=== PATIENT | female | born 1990 | race African-American/Black ===

== ENCOUNTER 2016-11-24 03:47 | Emergency (ER) | payer OTHER ==
[~2016-11-24] VITALS: Ht 167.6 cm; Wt 68.0 kg
[2016-11-24 04:13] VITALS: BP 114/73
[2016-11-24 04:39] LABS: URINE BILIRUBIN NEGATIVE (Negative); URINE BLOOD TRACE (Negative); URINE COLOR YELLOW; URINE GLUCOSE-RANDOM* NEGATIVE (Negative); URINE KETONES NEGATIVE (Negative); URINE NITRITE NEGATIVE (Negative); URINE PROTEIN (DIPSTICK) NEGATIVE (Negative); URINE SPECIFIC GRAVITY 1.025 (1.003-1.035); URINE UROBILINOGEN 0.2 E.U./dl (0.2-1.0)
[2016-11-24] MEDS ORDERED: FLAGYL500 MG PO (04:39)
[2016-11-24 04:46] LABS: CASTS None Seen /LPF (None Seen); SQUAMOUS 4-10 Moderate /LPF (0-3)
[2016-11-24 04:47] LABS: URINE WBC 0-5 Rare /HPF (0-5)
[2016-11-24 04:48] LABS: CRYSTALS None Seen /LPF (None Seen); URINE RBC 3-10 Few /HPF (0-2)
[2016-11-25 15:10] LABS: CHLAMYDIA TRACHOMATIS-PCR Negative (Negative); NEISSERIA GONORRHEA-PCR Negative (Negative)
== END 2016-11-24 04:52 | disposition home or self-care (01) ==
LOC: ER 03:47
PROVIDERS: Emergency Medicine
DX: N76.0 Acute vaginitis (principal)

== ENCOUNTER 2017-06-20 16:33 | Emergency (ER) | payer OTHER ==
[~2017-06-20] VITALS: Ht 167.6 cm; Wt 77.1 kg
[~2017-06-20 16:33] MED LIST: FLAGYL500 MG PO
[2017-06-20] MEDS ORDERED: PNV PRENATAL P1 EACH PO (16:58)
[2017-06-20] MEDS ORDERED: PRENATAL PO (16:58)
[2017-06-20 17:18] LABS: URINE BILIRUBIN NEGATIVE (Negative); URINE BLOOD NEGATIVE (Negative); URINE CLARITY CLEAR; URINE COLOR YELLOW; URINE GLUCOSE-RANDOM* NEGATIVE (Negative); URINE KETONES NEGATIVE (Negative); URINE NITRITE-REFLEX NEGATIVE (Negative); URINE PROTEIN (DIPSTICK) NEGATIVE (Negative); URINE SPECIFIC GRAVITY 1.025 (1.005-1.035); URINE UROBILINOGEN 0.2 E.U./dl (0.2-1.0)
[2017-06-20 17:20] LABS: URINE LEUKOCYTES-REFLEX 2+ (Negative)
[2017-06-20 17:24] LABS: SQUAMOUS 0-3 Few /LPF (0-3); URINE RBC None Seen /HPF (0-2); URINE WBC-REFLEX 6-15 Few /HPF (0-5)
[2017-06-20 17:25] LABS: BACTERIA-REFLEX 1-9 Few /HPF (None Seen); CASTS None Seen /LPF (None Seen); CRYSTALS None Seen /LPF (None Seen)
[2017-06-20] MEDS ORDERED: KEFLEX500 M1 PO (17:27)
== END 2017-06-20 17:36 | disposition home or self-care (01) ==
LOC: ER 16:33
PROVIDERS: Physician Assistant
DX: O23.42 Unspecified infection of urinary tract in pregnancy, second trimester (principal); Z3A.21 21 weeks gestation of pregnancy

== ENCOUNTER 2019-06-16 00:14 | Emergency (ER) | payer OTHER ==
[~2019-06-16] VITALS: Ht 167.6 cm; Wt 77.1 kg
[~2019-06-16 00:14] MED LIST changes: +KEFLEX500 M1 PO; +PNV PRENATAL P1 EACH PO; +PRENATAL PO
[2019-06-16] MEDS ORDERED: NOHOMEMEDICATIONS (00:27)
[2019-06-16] MEDS ORDERED: KEFLEX500 M1 PO (02:14)
[2019-06-16 02:21] VITALS: BP 112/70
== END 2019-06-16 02:22 | disposition home or self-care (01) ==
LOC: ER 00:14
DX: N76.0 Acute vaginitis (principal)

== ENCOUNTER 2019-08-17 14:59 | Emergency (ER) | payer OTHER ==
[~2019-08-17] VITALS: Ht 167.6 cm; Wt 77.1 kg
[~2019-08-17 14:59] MED LIST changes: +NOHOMEMEDICATIONS
[2019-08-17 15:12] LABS: URINE BILIRUBIN NEGATIVE (Negative); URINE BLOOD TRACE (Negative); URINE CLARITY CLEAR; URINE COLOR YELLOW; URINE GLUCOSE-RANDOM* NEGATIVE (Negative); URINE KETONES NEGATIVE (Negative); URINE LEUKOCYTES-REFLEX NEGATIVE (Negative); URINE NITRITE-REFLEX NEGATIVE (Negative); URINE PROTEIN (DIPSTICK) NEGATIVE (Negative); URINE SPECIFIC GRAVITY >= 1.030 (1.005-1.035)
[2019-08-17] MEDS ORDERED: REQUIP 0.25 M0.25 MG (15:23)
[2019-08-17] MEDS ORDERED: DIFLUCAN200 MG PO (16:50)
[2019-08-17 16:59] VITALS: BP 125/76
== END 2019-08-17 17:02 | disposition home or self-care (01) ==
LOC: ER 14:59
PROVIDERS: Physician Assistant
DX: B37.3 Candidiasis of vulva and vagina (principal)

== ENCOUNTER 2019-12-04 09:56 | Emergency (ER) | payer OTHER ==
[~2019-12-04] VITALS: Ht 167.6 cm; Wt 79.4 kg
[~2019-12-04 09:56] MED LIST changes: +DIFLUCAN200 MG PO; +REQUIP 0.25 M0.25 MG
[2019-12-04] MEDS ORDERED: REQUIP XL2 MG PO (10:21)
[2019-12-04 10:39] LABS: URINE BILIRUBIN NEGATIVE (Negative); URINE BLOOD 2+ (Negative); URINE CLARITY SL CLOUDY; URINE COLOR YELLOW; URINE GLUCOSE-RANDOM* NEGATIVE (Negative); URINE KETONES NEGATIVE (Negative); URINE PROTEIN (DIPSTICK) 2+ (Negative); URINE SPECIFIC GRAVITY 1.015 (1.005-1.035); URINE UROBILINOGEN 0.2 E.U./dl (0.2-1.0)
[2019-12-04 10:42] LABS: URINE LEUKOCYTES-REFLEX 2+ (Negative); URINE NITRITE-REFLEX POSITIVE (Negative)
[2019-12-04 10:48] LABS: CASTS None Seen /LPF (None Seen); SQUAMOUS 0-3 Few /LPF (0-3); URINE WBC-REFLEX >25 Many /HPF (0-5)
[2019-12-04 10:49] LABS: BACTERIA-REFLEX >30 Many /HPF (None Seen); CRYSTALS None Seen /LPF (None Seen)
[2019-12-04] MEDS ORDERED: ZOFRAN ODT4 MG PO (11:20)
[2019-12-04] MEDS ORDERED: MACROBID 100 M100 M1 PO (11:20)
[2019-12-04 12:18] VITALS: BP 97/46
== END 2019-12-04 12:19 | disposition home or self-care (01) ==
LOC: ER 09:56
PROVIDERS: Emergency Medicine
DX: N30.00 Acute cystitis without hematuria (principal); R11.2 Nausea with vomiting, unspecified; Z79.899 Other long term (current) drug therapy

== ENCOUNTER 2021-02-14 21:21 | Emergency (ER) | payer OTHER ==
[~2021-02-14] VITALS: Ht 167.6 cm; Wt 78.9 kg
[~2021-02-14 21:21] MED LIST changes: +MACROBID 100 M100 M1 PO; +REQUIP XL2 MG PO; +ZOFRAN ODT4 MG PO
[2021-02-14] MEDS ORDERED: NOHOMEMEDICATIONS (21:43)
[2021-02-14 21:48] LABS: URINE BILIRUBIN NEGATIVE (Negative); URINE BLOOD 2+ (Negative); URINE CLARITY CLOUDY; URINE COLOR YELLOW; URINE GLUCOSE-RANDOM* NEGATIVE (Negative); URINE KETONES TRACE (Negative); URINE NITRITE-REFLEX NEGATIVE (Negative); URINE PROTEIN (DIPSTICK) NEGATIVE (Negative); URINE UROBILINOGEN 0.2 E.U./dl (0.2-1.0)
[2021-02-14 21:53] LABS: URINE LEUKOCYTES-REFLEX 3+ (Negative)
[2021-02-14 21:55] LABS: SQUAMOUS 0-3 Few /LPF (0-3); WBC CLUMPS Few (None Seen)
[2021-02-14 21:56] LABS: CASTS None Seen /LPF (None Seen); CRYSTALS None Seen /LPF (None Seen); MUCUS 0-3 Light strn/LPF (None Seen); URINE RBC 3-10 Few /HPF (NONE SEEN); URINE WBC-REFLEX >25 Many /HPF (0-5)
[2021-02-14 22:30] LABS: HEMATOCRIT 38.7 % (37.0-47.0); HEMOGLOBIN 12.4 gm/dL (12.0-15.0); MCH 25.9 pg (26.0-34.0); MCHC 32.1 g/dL (28.0-37.0); MCV 80.5 fL (80.0-100.0); RBC 4.81 mil/uL (4.20-5.00); RDW 13.1 % (10.5-14.5); WBC 10.7 thou/uL (4.0-11.0)
[2021-02-14 22:32] LABS: ANION GAP 15 mmol/L (7-16); BUN 7 mg/dL (7-18); CALCIUM 8.9 mg/dL (8.5-10.1); CHLORIDE 100 mmol/L (98-107); CO2 23 mmol/L (21-32); CREATININE 0.9 mg/dL (0.6-1.0); GLUCOSE 122 mg/dL (74-106); POTASSIUM 3.6 mmol/L (3.5-5.1); SODIUM 138 mmol/L (136-145)
[2021-02-14] MEDS ORDERED: CEPHALEXIN500 MG PO (22:37)
[2021-02-14 23:01] VITALS: BP 140/70
--- NOTE | 2021-02-15 16:11 | EKG ---
[place] [address] [address] [facility] [place] [address] ELECTROCARDIOGRAM REPORT Name: THOMPSONIWONA Room #: [facility]#: [id number] Admission: 02/14/21 Attend Phys: Discharge: 02/15/21 Date of : 86 Report #: [id number] [facility] ED Test Date: 2021-02-14 Test Time: 21:29:35 Pat Name: IWONA THOMPSON Department: Room: Gender: F [employer]: edis : 1990 Requested By: Berta Nayak Order Number: [id number] : Ravi Baum Measurements Intervals [place] Rate: 95 P: 72 UT: 137 QRS: 45 QRSD: 73 T: 29 QT: 383 QTc: 482 Interpretive Statements Sinus rhythm Probable left atrial enlargement Borderline T wave abnormalities Borderline prolonged QT interval No previous ECG available for comparison Electronically Signed On 02-15-2021 16:10:56 CDT by Ravi Baum [email or web address] <ELECTRONICALLY SIGNED> By: Ravi Baum MD, [facility] 02/15/21 1610 2129 Ravi Baum MD, FACC /EPI
== END 2021-02-15 00:23 | disposition home or self-care (01) ==
LOC: ER 21:21
PROVIDERS: Nurse Practitioner Family
DX: N39.0 Urinary tract infection, site not specified (principal)